=== PATIENT | male | born 1990 | race Caucasian/White ===

== ENCOUNTER 2016-08-02 00:14 | Emergency (ER) | payer SELFPAY ==
[2016-08-02 01:46] LABS: ABSOLUTE BASOPHILS # (AUTO) 0.1 10^3/uL (0.0-0.2); ABSOLUTE EOSINOPHILS # (AUTO) 0.1 10^3/uL (0.0-0.6); ABSOLUTE LYMPHOCYTES (AUTO) 1.8 10^3/uL (0.5-4.7); ABSOLUTE MONOCYTES (AUTO) 0.9 10^3/uL (0.1-1.4); ABSOLUTE NEUT (AUTO) 10.1 10^3/uL (1.7-8.2); BASOPHILS % (AUTO) 0.7 % (0-2); EOSINOPHILS % (AUTO) 0.5 % (0-6); HEMATOCRIT 41.1 % (37.9-51.0); HEMOGLOBIN 13.8 g/dL (13.5-17.0); HGB HCT DIFFERENCE 0.3; LYMPHOCYTES % (AUTO) 13.8 % (13-45); MEAN CORPUSCULAR HEMOGLOBIN 28.3 pg (27.0-33.4); MEAN CORPUSCULAR HGB CONC 33.5 g/dL (32.0-36.0); MEAN CORPUSCULAR VOLUME 85 fl (80-97); MONOCYTES % (AUTO) 7.1 % (3-13); RED BLOOD COUNT 4.87 10^6/uL (4.35-5.55); RED CELL DISTRIBUTION WIDTH 13.3 % (11.5-14.0); SEGMENTED NEUTROPHILS % (AUTO) 77.9 % (42-78); WHITE BLOOD COUNT 12.9 10^3/uL (4.0-10.5)
[2016-08-02 01:53] LABS: ALANINE AMINOTRANSFERASE 20 U/L (21-72); ALBUMIN 4.9 g/dL (3.5-5.0); ALKALINE PHOSPHATASE 71 U/L (38-126); ANION GAP 14 (5-19); ASPARTATE AMINO TRANSFERASE 20 U/L (17-59); BILIRUBIN,DIRECT 0.3 mg/dL (0.0-0.4); BILIRUBIN,TOTAL 0.5 mg/dL (0.2-1.3); BLOOD UREA NITROGEN 13 mg/dL (7-20); CALCIUM 9.5 mg/dL (8.4-10.2); CARBON DIOXIDE 28 mmol/L (22-30); CHLORIDE 102 mmol/L (98-107); CREATININE RESULT 1.18 mg/dL (0.52-1.25); GLUCOSE 128 mg/dL (75-110); POTASSIUM 3.3 mmol/L (3.6-5.0); SODIUM 143.8 mmol/L (137-145); TOTAL PROTEIN 7.5 g/dL (6.3-8.2)
[2016-08-02 01:56] LABS: ALCOHOL < 10 mg/dL (NONE DETECTED)
[2016-08-02 04:21] LABS: AMORPHOUS SEDIMENT,URINE TRACE /HPF; BILIRUBIN,URINE NEGATIVE (NEGATIVE); GLUCOSE, URINE NEGATIVE (NEGATIVE); KETONES,URINE NEGATIVE (NEGATIVE); LEUKOCYTE ESTERASE,URINE NEGATIVE (NEGATIVE); NITRITE,URINE NEGATIVE (NEGATIVE); PROTEIN,URINE NEGATIVE (NEGATIVE); URINE SPECIFIC GRAVITY 1.015; UROBILINOGEN,URINE NEGATIVE mg/dL (<2.0)
[2016-08-02 04:25] LABS: APPEARANCE,URINE CLOUDY
[2016-08-02 04:31] LABS: URINE BARBITURATES SCREEN NEGATIVE; URINE METHADONE SCREEN NEGATIVE; URINE OPIATES LOW NEGATIVE; URINE PHENCYCLIDINE SCREEN NEGATIVE
--- NOTE | 2016-08-02 07:23 | ER Document Report ---
ED General - General Chief Complaint: Psych Problem Stated Complaint: IVC WITH PAPERS Time Seen by Provider: 08/02/16 00:32 Notes: Patient is a 26-year-old male who is brought in for hallucinations. He is brought in by his pohnrdu-bo-qon. Patient has a history of hallucinations in the past. He was admitted to [facility] last year. At that time was placed on medications which did help improve things. Patient himself denies hallucinations but seems very unforthcoming on exam. He does not make good eye contact. He gets very angry when I ask him about his potential hallucinations. When I left the room the patient's gewixwv-up-hbl was able to play and audiotape recording for me with the patient is having hallucinations during the conversation. Patient feels that his soul has been replaced by another. He also talks about seeing the Archangel Ab. He also then starts to talk to someone else in the room who was not there on the recording. Patient has been very aggressive towards family at home. He has 2 younger siblings at home. The nqwumtn-eb-rpa says that the parents of the patient have to take turns staying up at night because of the fear that the patient could be dangerous towards his younger siblings. TRAVEL OUTSIDE OF THE [place] IN LAST 30 DAYS: No - Related Data Allergies/Adverse Reactions: No Known Allergies Allergy (Unverified 12/28/15 05:18) Past Medical History - Social History Smoking Status: Unknown if Ever Smoked Chew tobacco use (# tins/day): No Frequency of alcohol use: None Drug Abuse: None Family History: Reviewed & Not Pertinent, Other - Patient was unsure Patient has suicidal ideation: Yes Patient has homicidal ideation: Yes Renal/ Medical History: Denies: Hx Peritoneal Dialysis - Immunizations Hx Diphtheria, Pertussis, Tetanus Vaccination: No Review of Systems - Review of Systems Notes: My Normal Review Basic REVIEW OF SYSTEMS: CONSTITUTIONAL : Denies fever, chills, or sweats. Denies recent illness. EENT: Denies eye, ear, throat, or mouth pain or symptoms. Denies nasal or sinus congestion. CARDIOVASCULAR: Denies chest pain. RESPIRATORY: Denies cough, cold, or chest congestion. Denies shortness of breath, difficulty breathing, or wheezing. GASTROINTESTINAL: Denies abdominal pain. Denies nausea, vomiting, or diarrhea. Denies constipation. Last BM: MUSCULOSKELETAL: Denies neck or back pain or joint pain or swelling. SKIN: Denies rash or skin lesions. NEUROLOGICAL: Denies altered mental status or loss of consciousness. Denies headache. Denies weakness or paralysis or loss of use of either side. Denies problems with gait or speech. Denies sensory or motor loss. PSYCHIATRIC: Hallucinations. ALL OTHER SYSTEMS REVIEWED AND NEGATIVE. Physical Exam - Vital signs Vitals: Temp Pulse Resp BP Pulse Ox 98.4 F 122 H 18 149/90 H 98 08/02/16 00:20 08/02/16 00:20 08/02/16 00:20 08/02/16 00:20 08/02/16 00:20 - Notes Notes: General Appearance: Well nourished, alert, cooperative, no acute distress, no obvious discomfort. Vitals: reviewed, See vital signs table. Head: no swelling or tenderness to the head Eyes: PERRL, EOMI, Conjuctiva clear Mouth: No decreasd moisture Neck: Supple, no neck tenderness Lungs: No wheezing, No rales, No rhonci, No accessory muscle use, good air exchange bilaterally. Heart: Normal rate, Regular rythm, No murmur, no rub Abdomen: Normal BS, soft, No rigidity, No abdominal tenderness, No guarding, no rebound, no abdominal masses, no organomegaly Extremities: strength 5/5 in all extremities, good pulses in all extremities, no swelling or tenderness in the extremities, no edema. Neuro: speech clear, oriented x 3, normal affect, responds appropriately to questions. Course - Vital Signs Vital signs: Temp Pulse Resp BP Pulse Ox 98.2 F 91 20 135/81 H 98 08/02/16 05:40 08/02/16 05:40 08/02/16 05:40 08/02/16 05:40 08/02/16 05:40 - Laboratory Result Diagrams: 08/02/16 01:17 08/02/16 01:17 Laboratory results interpreted by me: 08/02/16 08/02/16 01:17 01:17 WBC 12.9 H Absolute Neutrophils 10.1 H Potassium 3.3 L Glucose 128 H ALT 20 L Salicylates < 1.0 L Acetaminophen < 10 L - Transfer of Care Notes: 08/02/16 07:22 History and the other located patient's history and the other recording that was placed from about a jiimsii-ag-qec are very concerning. Patient is obviously having significant hallucinations and unfortunately has been aggressive towards family which seem to be triggered by these hallucinations. The patient will most likely need inpatient psychiatric care. Patient is medically stable for psychiatric evaluation and placement. Patient is on involuntary commitment paperwork. Dictation of this chart was performed using voice recognition software; therefore, there may be some unintended grammatical errors.
--- NOTE | 2016-08-02 10:41 | ER Document Report ---
Doctor's Note Notes: 08/02/16 10:41 As the rounding physician for our psychiatric patients, I have reviewed the chart, vitals, lab work. Patient has been examined and noted to be stable at this time He continues to endorse AVH... states "I have before, so I can see spirits. I hear voices every day". He is calm and denies current SI/HI. . I am awaiting mental health in put regarding disposition. At this point he is medically stable. Tachycardia resolved.
[2016-08-02] MEDS ORDERED: OLANZAPINE INJ/PF 10 MG SDV IM ONE (12:46)
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
[2016-08-03] MEDS ORDERED: HALOPERIDOL LACTATE INJ 5 MG/1 ML VIAL IM ONE (03:47)
--- NOTE | 2016-08-03 11:46 | ER Document Report ---
Doctor's Note Notes: 08/03/16 11:46 Rounds: Chart reviewed and patient interview. Patient is rather quiet. Says he has been acting upon advice given to him by Kam, speaking in the third person as if Kam is someone different than the patient. Kam. Vital signs of all been normal. Lab studies are all normal except for a white count of 12,900, but the patient does not have any evidence of an infectious process. Patient appears to be medically stable for transfer or discharge. Denisha Durand MD
[2016-08-03] MEDS ORDERED: OLANZAPINE 5 MG TABLET PO SCH (18:30)
[2016-08-03] MEDS ORDERED: BENZTROPINE MESYLATE 1 MG TABLET PO SCH (18:30)
[2016-08-03] MEDS ORDERED: BENZTROPINE MESYLATE 1 MG TABLET PO ONE (19:30)
--- NOTE | 2016-08-04 09:38 | EKG REPORT ---
SEVERITY:- BORDERLINE ECG - SINUS RHYTHM INFERIOR Q WAVES, PROBABLY NORMAL VARIATION ST ELEV, PROBABLE NORMAL EARLY REPOL PATTERN : Confirmed by: Tess Leos 04-Aug-2016 09:38:28
--- NOTE | 2016-08-04 09:57 | ER Document Report ---
Doctor's Note Notes: 08/04/16 09:55 Patient chart reviewed, stable vital signs and labs, no issues overnight, he is resting comfortably on a stretcher, eating a breakfast tray, no complaints at present time, mental health team continues process to find placement for patient , continues to meet IVC criteria at this point in time and will remain in the emergency room until further placement arrangements can be made
[2016-08-04] MEDS ORDERED: BENZTROPINE MESYLATE 1 MG TABLET PO SCH (10:00)
[2016-08-04] MEDS: OLANZAPINE INJ/PF 10 MG SDV IM SCH (18:34)
[2016-08-05] MEDS ORDERED: ACETAMINOPHEN 325 MG TABLET PO ONE (00:26)
[2016-08-05] MEDS: BENZTROPINE MESYLATE INJ 2 MG/2 ML AMPULE IM SCH (09:36)
[2016-08-05] MEDS: OLANZAPINE INJ/PF 10 MG SDV IM SCH (09:36)
--- NOTE | 2016-08-05 15:38 | ER Document Report ---
Doctor's Note Notes: 08/05/16 15:38 As the rounding physician for our psychiatric patients, I have reviewed the chart, vitals, lab work. Patient has been examined and noted to be stable at this time. He is walking around his room but is calm and conversant. . I am awaiting mental health in put regarding placement
[2016-08-05] MEDS: HALOPERIDOL LACTATE INJ 5 MG/1 ML VIAL IM SCH (18:28)
[2016-08-05] MEDS ORDERED: HALOPERIDOL LACTATE INJ 5 MG/1 ML VIAL IM ONE (19:08)
[2016-08-05] MEDS ORDERED: BENZTROPINE MESYLATE INJ 2 MG/2 ML AMPULE IM ONE (19:10)
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
[2016-08-06] MEDS: BENZTROPINE MESYLATE INJ 2 MG/2 ML AMPULE IM SCH (08:15)
[2016-08-06] MEDS: HALOPERIDOL LACTATE INJ 5 MG/1 ML VIAL IM SCH ×2 (09:52→17:47)
--- NOTE | 2016-08-06 21:40 | ER Document Report ---
Doctor's Note Notes: 08/06/16 21:39 Patient is quite uncooperative at this time. No questions at this time beyond when can go home. Discussed with patient that he will be transferred to an inpatient mental health facility as soon as bed is available. Patient is not thrilled by this decision but understands that we will continue to reevaluate until a bed becomes available.
[2016-08-07] MEDS: BENZTROPINE MESYLATE INJ 2 MG/2 ML AMPULE IM SCH (09:27)
[2016-08-07] MEDS: HALOPERIDOL LACTATE INJ 5 MG/1 ML VIAL IM SCH (09:28)
--- NOTE | 2016-08-07 10:33 | ER Document Report ---
Doctor's Note Notes: 08/07/16 10:33 Patient is calm and cooperative at this time. He is coloring and using crayons in the room. He has no complaints. He would just like to know when he will be leaving the emergency department. AVSS. No distress. Medically stable.
[2016-08-07 12:57] VITALS: BP 107/49
== END 2016-08-07 13:14 ==
LOC: ER 00:14
DX: F20.0 Paranoid schizophrenia (principal); R45.851 Suicidal ideations; R45.850 Homicidal ideations; Z78.1 Physical restraint status; Z75.1 Person awaiting admission to adequate facility elsewhere
CPT/HCPCS: 93005; 99285; 96372; 36415; 80307 ×4; 85025; 80053; 81001; 93010; J0515 ×3; J1630 ×4

== ENCOUNTER 2017-05-22 20:35 | Inpatient (IN) | payer OTHER, MEDICAID ==
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
[2017-05-22 22:10] LABS: ABSOLUTE BASOPHILS # (AUTO) 0.1 10^3/uL (0.0-0.2); ABSOLUTE EOSINOPHILS # (AUTO) 0.1 10^3/uL (0.0-0.6); ABSOLUTE LYMPHOCYTES (AUTO) 1.4 10^3/uL (0.5-4.7); ABSOLUTE NEUT (AUTO) 13.7 10^3/uL (1.7-8.2); BASOPHILS % (AUTO) 0.3 % (0-2); EOSINOPHILS % (AUTO) 0.6 % (0-6); HEMATOCRIT 48.2 % (37.9-51.0); HEMOGLOBIN 16.6 g/dL (13.5-17.0); LYMPHOCYTES % (AUTO) 8.3 % (13-45); MEAN CORPUSCULAR HEMOGLOBIN 28.6 pg (27.0-33.4); MEAN CORPUSCULAR HGB CONC 34.4 g/dL (32.0-36.0); MEAN CORPUSCULAR VOLUME 83 fl (80-97); MONOCYTES % (AUTO) 6.4 % (3-13); PLATELET COUNT 193 10^3/uL (150-450); RED BLOOD COUNT 5.81 10^6/uL (4.35-5.55); RED CELL DISTRIBUTION WIDTH 13.4 % (11.5-14.0); SEGMENTED NEUTROPHILS % (AUTO) 84.4 % (42-78); TOTAL CELLS COUNTED % (AUTO) 100 %; WHITE BLOOD COUNT 16.3 10^3/uL (4.0-10.5)
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
[2017-05-22 22:41] LABS: ALANINE AMINOTRANSFERASE 17 U/L (21-72); ALBUMIN 5.6 g/dL (3.5-5.0); ALKALINE PHOSPHATASE 74 U/L (38-126); ASPARTATE AMINO TRANSFERASE 20 U/L (17-59); BILIRUBIN,DIRECT 0.3 mg/dL (0.0-0.4); BILIRUBIN,TOTAL 0.6 mg/dL (0.2-1.3); BLOOD UREA NITROGEN 20 mg/dL (7-20); CALCIUM 10.6 mg/dL (8.4-10.2); GLUCOSE 177 mg/dL (75-110); POTASSIUM 4.4 mmol/L (3.6-5.0); TOTAL PROTEIN 8.1 g/dL (6.3-8.2)
[2017-05-22 22:46] LABS: ACETAMINOPHEN < 10 ug/mL (10-30); ALCOHOL < 10 mg/dL (NONE DETECTED); ANION GAP 22 (5-19); CARBON DIOXIDE 22 mmol/L (22-30); CHLORIDE 98 mmol/L (98-107); SALICYLATE < 1.0 mg/dL (2.0-20.0); SODIUM 141.8 mmol/L (137-145)
[2017-05-22 22:51] LABS: APPEARANCE,URINE CLEAR; BILIRUBIN,URINE NEGATIVE (NEGATIVE); COLOR,URINE YELLOW; GLUCOSE, URINE NEGATIVE (NEGATIVE); KETONES,URINE 300 mg/dL (NEGATIVE); URINE SPECIFIC GRAVITY 1.019
[2017-05-22 22:52] LABS: LEUKOCYTE ESTERASE,URINE NEGATIVE (NEGATIVE); NITRITE,URINE NEGATIVE (NEGATIVE); PROTEIN,URINE 100 mg/dL (NEGATIVE); URINE AMPHETAMINES SCREEN NEGATIVE; URINE BARBITURATES SCREEN NEGATIVE; URINE BENZODIAZEPINES SCREEN NEGATIVE; URINE COCAINE SCREEN NEGATIVE; URINE MARIJUANA (THC) SCREEN NEGATIVE; URINE METHADONE SCREEN NEGATIVE; URINE PHENCYCLIDINE SCREEN NEGATIVE
[2017-05-22] MEDS ORDERED: IBUPROFEN 600 MG TABLET PO ONE (22:58)
[2017-05-22] MEDS ORDERED: TETANUS/DIPHTHERIA TOX-ADULT 0.5 ML SYR (>=7YO) IM ONE (22:58)
[2017-05-22] MEDS ORDERED: CEPHALEXIN 500 MG CAPSULE PO ONE (22:58)
[2017-05-22] MEDS ORDERED: NORMAL SALINE 1000 ML 1,000 ML IV ONE (23:08)
[2017-05-22] MEDS ORDERED: KETOROLAC TROMETHAMINE INJ/PF 30 MG/1 ML SDV IV ONE (23:09)
[2017-05-22] MEDS ORDERED: SILVER SULFADIAZINE 1% CREAM 25 GM TP ONE (23:09)
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
[2017-05-23] MEDS ORDERED: NORMAL SALINE 1000 ML 1,000 ML IV ONE (10:10)
[2017-05-23] MEDS ORDERED: SILVER SULFADIAZINE 1% CREAM 25 GM TP ONE (10:11)
[2017-05-23] MEDS ORDERED: HALOPERIDOL 5 MG TABLET PO SCH (10:15)
--- NOTE | 2017-05-23 10:21 | EKG REPORT ---
SEVERITY:- ABNORMAL ECG - SINUS TACHYCARDIA ST ELEVATION UNCHANGED FROM PREV. EKG : Confirmed by: Pasquale Brush MD 23-May-2017 10:21:36
[2017-05-23 10:37] LABS: ABSOLUTE EOSINOPHILS # (AUTO) 0.1 10^3/uL (0.0-0.6); ABSOLUTE LYMPHOCYTES (AUTO) 1.3 10^3/uL (0.5-4.7); ABSOLUTE MONOCYTES (AUTO) 1.6 10^3/uL (0.1-1.4); ABSOLUTE NEUT (AUTO) 10.7 10^3/uL (1.7-8.2); BASOPHILS % (AUTO) 0.3 % (0-2); EOSINOPHILS % (AUTO) 0.6 % (0-6); HEMATOCRIT 43.7 % (37.9-51.0); HEMOGLOBIN 14.9 g/dL (13.5-17.0); LYMPHOCYTES % (AUTO) 9.3 % (13-45); MEAN CORPUSCULAR HEMOGLOBIN 28.3 pg (27.0-33.4); MEAN CORPUSCULAR HGB CONC 34.1 g/dL (32.0-36.0); MEAN CORPUSCULAR VOLUME 83 fl (80-97); MONOCYTES % (AUTO) 11.7 % (3-13); PLATELET COUNT 166 10^3/uL (150-450); RED BLOOD COUNT 5.25 10^6/uL (4.35-5.55); RED CELL DISTRIBUTION WIDTH 13.6 % (11.5-14.0); SEGMENTED NEUTROPHILS % (AUTO) 78.1 % (42-78); TOTAL CELLS COUNTED % (AUTO) 100 %; WHITE BLOOD COUNT 13.7 10^3/uL (4.0-10.5)
[2017-05-23 10:45] LABS: AMORPHOUS SEDIMENT,URINE TRACE /HPF
[2017-05-23 10:56] LABS: APPEARANCE,URINE CLOUDY; BILIRUBIN,URINE NEGATIVE (NEGATIVE); COLOR,URINE COLORLESS; GLUCOSE, URINE 150 mg/dL (NEGATIVE); KETONES,URINE 25 mg/dL (NEGATIVE); URINE SPECIFIC GRAVITY 1.023
[2017-05-23 10:57] LABS: LEUKOCYTE ESTERASE,URINE NEGATIVE (NEGATIVE); NITRITE,URINE NEGATIVE (NEGATIVE); PROTEIN,URINE NEGATIVE (NEGATIVE)
[2017-05-23 11:00] LABS: ALANINE AMINOTRANSFERASE 22 U/L (21-72); ALBUMIN 4.6 g/dL (3.5-5.0); ALKALINE PHOSPHATASE 56 U/L (38-126); ANION GAP 15 (5-19); ASPARTATE AMINO TRANSFERASE 19 U/L (17-59); BILIRUBIN,DIRECT 0.1 mg/dL (0.0-0.4); BILIRUBIN,TOTAL 0.8 mg/dL (0.2-1.3); BLOOD UREA NITROGEN 12 mg/dL (7-20); CALCIUM 9.5 mg/dL (8.4-10.2); CARBON DIOXIDE 22 mmol/L (22-30); CHLORIDE 103 mmol/L (98-107); GLUCOSE 137 mg/dL (75-110); SODIUM 139.8 mmol/L (137-145); TOTAL PROTEIN 6.6 g/dL (6.3-8.2)
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
[2017-05-23 15:22] LABS: FREE T4 (FREE THYROXINE) 2.06 ng/dL (0.78-2.19)
[2017-05-23 15:36] LABS: THYROID STIMULATING HORMONE 1.47 uIU/mL (0.47-4.68)
[2017-05-23] MEDS ORDERED: IBUPROFEN 400 MG TABLET PO PRN (17:18)
[2017-05-23] MEDS ORDERED: HYDROCODONE/ACETAMINOPHEN 5-325 MG TABLET PO ONE (17:18)
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
[2017-05-23] MEDS ORDERED: ACETAMINOPHEN 325 MG TABLET PO PRN (18:34)
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
[2017-05-23] MEDS: OLANZAPINE 5 MG TABLET PO SCH (18:36)
[2017-05-23] MEDS ORDERED: CEPHALEXIN 500 MG CAPSULE PO ONE (19:00)
[2017-05-23] MEDS ORDERED: LANSOPRAZOLE 15 MG TAB.RAP.DR PO ONE (19:00)
[2017-05-24] MEDS: CEPHALEXIN 500 MG CAPSULE PO SCH ×5 (05:25→23:44)
[2017-05-24] MEDS: LANSOPRAZOLE 15 MG TAB.RAP.DR PO SCH (06:38)
[2017-05-24] MEDS: LACTOBACILLUS ACIDOPHILUS 250 MG TAB PO SCH (11:06)
[2017-05-24] MEDS: SILVER SULFADIAZINE 1% CREAM 50 GM TP SCH ×2 (11:07→17:41)
[2017-05-24] MEDS: OLANZAPINE 5 MG TABLET PO SCH ×2 (11:07→17:41)
[2017-05-24] MEDS: BENZTROPINE MESYLATE 1 MG TABLET PO SCH (11:07)
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
[2017-05-25] MEDS ORDERED: HALOPERIDOL LACTATE INJ 5 MG/1 ML VIAL IV ONE ×2 (05:02→05:15)
[2017-05-25] MEDS: LANSOPRAZOLE 15 MG TAB.RAP.DR PO SCH (05:10)
[2017-05-25] MEDS: CEPHALEXIN 500 MG CAPSULE PO SCH ×3 (05:10→17:28)
[2017-05-25] MEDS ORDERED: HALOPERIDOL LACTATE INJ 5 MG/1 ML VIAL IM ONE (05:15)
[2017-05-25 05:28] LABS: ABSOLUTE BASOPHILS # (AUTO) 0.1 10^3/uL (0.0-0.2); ABSOLUTE EOSINOPHILS # (AUTO) 0.1 10^3/uL (0.0-0.6); ABSOLUTE LYMPHOCYTES (AUTO) 2.5 10^3/uL (0.5-4.7); ABSOLUTE MONOCYTES (AUTO) 1.4 10^3/uL (0.1-1.4); ABSOLUTE NEUT (AUTO) 9.3 10^3/uL (1.7-8.2); BASOPHILS % (AUTO) 0.4 % (0-2); HEMATOCRIT 41.3 % (37.9-51.0); HEMOGLOBIN 14.4 g/dL (13.5-17.0); LYMPHOCYTES % (AUTO) 18.5 % (13-45); MEAN CORPUSCULAR HEMOGLOBIN 28.7 pg (27.0-33.4); MEAN CORPUSCULAR HGB CONC 34.7 g/dL (32.0-36.0); MEAN CORPUSCULAR VOLUME 83 fl (80-97); MONOCYTES % (AUTO) 10.5 % (3-13); PLATELET COUNT 145 10^3/uL (150-450); RED CELL DISTRIBUTION WIDTH 13.4 % (11.5-14.0); SEGMENTED NEUTROPHILS % (AUTO) 69.6 % (42-78); TOTAL CELLS COUNTED % (AUTO) 100 %; WHITE BLOOD COUNT 13.3 10^3/uL (4.0-10.5)
[2017-05-25 06:05] LABS: ANION GAP 15 (5-19); BLOOD UREA NITROGEN 9 mg/dL (7-20); CALCIUM 9.6 mg/dL (8.4-10.2); CARBON DIOXIDE 26 mmol/L (22-30); CHLORIDE 99 mmol/L (98-107); GLUCOSE 119 mg/dL (75-110); PHOSPHORUS 3.9 mg/dL (2.5-4.5); POTASSIUM 3.7 mmol/L (3.6-5.0); SODIUM 140.4 mmol/L (137-145)
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
[2017-05-25] MEDS: LACTOBACILLUS ACIDOPHILUS 250 MG TAB PO SCH (16:23)
[2017-05-25] MEDS: OLANZAPINE 5 MG TABLET PO SCH ×2 (16:23→17:28)
[2017-05-25] MEDS: BENZTROPINE MESYLATE 1 MG TABLET PO SCH (16:23)
[2017-05-25] MEDS: SILVER SULFADIAZINE 1% CREAM 50 GM TP SCH ×2 (16:23→17:28)
[2017-05-26] MEDS: CEPHALEXIN 500 MG CAPSULE PO SCH ×3 (00:25→11:40)
[2017-05-26] MEDS: LANSOPRAZOLE 15 MG TAB.RAP.DR PO SCH (05:36)
[2017-05-26] MEDS: BENZTROPINE MESYLATE 1 MG TABLET PO SCH (11:07)
[2017-05-26] MEDS: OLANZAPINE 5 MG TABLET PO SCH (11:08)
[2017-05-26] MEDS: LACTOBACILLUS ACIDOPHILUS 250 MG TAB PO SCH (11:37)
[2017-05-26] MEDS ORDERED: SILVER SULFADIAZINE 1% CREAM 400 GM TP ONE (12:00)
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
[2017-05-26 13:30] VITALS: BP 126/84
[2017-05-26] MEDS ORDERED: SILVER SULFADIAZINE 1% CREAM 400 GM TP SCH (18:00)
== END 2017-05-26 15:47 | disposition short-term general hospital (02) | DRG 935 ==
LOC: ER 20:35 → INTOOBSV 05-23 18:32 → EH 05-23 18:32 → 5 05-23 23:15 → OBSVTOIN 05-25 09:49
PROVIDERS: ADMIT Internal Medicine; ATTEND Internal Medicine
DX: T21.25XA Burn of second degree of buttock, initial encounter (principal); F20.0 Paranoid schizophrenia; S92.351A Displaced fracture of fifth metatarsal bone, right foot, initial encounter for closed fracture; T22.212A Burn of second degree of left forearm, initial encounter; T24.221A Burn of second degree of right knee, initial encounter; T21.24XA Burn of second degree of lower back, initial encounter; T23.291A Burn of second degree of multiple sites of right wrist and hand, initial encounter; T31.0 Burns involving less than 10% of body surface; T22.211A Burn of second degree of right forearm, initial encounter; E86.0 Dehydration; E83.52 Hypercalcemia; E88.89 Other specified metabolic disorders; F17.200 Nicotine dependence, unspecified, uncomplicated; T43.596A Underdosing of other antipsychotics and neuroleptics, initial encounter; X83.8XXA Intentional self-harm by other specified means, initial encounter; V48.4XXA Person boarding or alighting a car injured in noncollision transport accident, initial encounter; Y92.410 Unspecified street and highway as the place of occurrence of the external cause; Z91.138 Patient's unintentional underdosing of medication regimen for other reason
CPT/HCPCS: 36415; 70450; 71260; 72125; 74177; 80048; 80053; 80307; 81001; 82962; 83036; 83735; 84100; 84439; 84443; 85025; 90471; 90714; 93005; 93010; 96361; 96374; 99285; G0378; J1630; J1885; J3490; J7030

== ENCOUNTER → 2018-03-25 | Outpatient (CLI) | payer MEDICAID ==
[2018-03-25 11:10] LABS: HEMOGLOBIN 16.5 g/dL (13.5-17.0); MEAN CORPUSCULAR HEMOGLOBIN 29.1 pg (27.0-33.4); MEAN CORPUSCULAR HGB CONC 35.1 g/dL (32.0-36.0); MEAN CORPUSCULAR VOLUME 83 fl (80-97); PLATELET COUNT 221 10^3/uL (150-450); RED BLOOD COUNT 5.67 10^6/uL (4.35-5.55); RED CELL DISTRIBUTION WIDTH 13.1 % (11.5-14.0); WHITE BLOOD COUNT 7.9 10^3/uL (4.0-10.5)
[2018-03-25 11:11] LABS: APPEARANCE,URINE SLIGHTLY-CLOUDY; BILIRUBIN,URINE NEGATIVE (NEGATIVE); COLOR,URINE YELLOW; GLUCOSE, URINE NEGATIVE (NEGATIVE); KETONES,URINE NEGATIVE (NEGATIVE); LEUKOCYTE ESTERASE,URINE NEGATIVE (NEGATIVE); NITRITE,URINE NEGATIVE (NEGATIVE); PROTEIN,URINE NEGATIVE (NEGATIVE); URINE SPECIFIC GRAVITY 1.018; UROBILINOGEN,URINE NEGATIVE mg/dL (<2.0)
[2018-03-25 11:26] LABS: ALANINE AMINOTRANSFERASE 19 U/L (21-72); ALBUMIN 5.2 g/dL (3.5-5.0); ALKALINE PHOSPHATASE 89 U/L (38-126); ANION GAP 13 (5-19); ASPARTATE AMINO TRANSFERASE 20 U/L (17-59); BILIRUBIN,DIRECT 0.3 mg/dL (0.0-0.4); BILIRUBIN,TOTAL 0.6 mg/dL (0.2-1.3); BLOOD UREA NITROGEN 14 mg/dL (7-20); CALCIUM 9.8 mg/dL (8.4-10.2); CARBON DIOXIDE 30 mmol/L (22-30); CHLORIDE 100 mmol/L (98-107); CHOLESTEROL 179.48 mg/dL (0-200); CREATINE KINASE 80 U/L (55-170); GLUCOSE 97 mg/dL (75-110); POTASSIUM 4.2 mmol/L (3.6-5.0); SODIUM 142.9 mmol/L (137-145); TRIGLYCERIDES 358 mg/dL (<150)
[2018-03-25 11:37] LABS: DIRECT LDL 84 mg/dL (<100)
[2018-03-25 11:39] LABS: VLDL CHOLESTEROL 71.6 mg/dL (10-31)
== END ==
LOC: OD 10:08
PROVIDERS: ATTEND Nurse Practitioner Psychiatric/Mental Health
DX: F20.9 Schizophrenia, unspecified (principal)
CPT/HCPCS: 36415; 80053; 80061; 81001; 82550; 84146; 84443; 85027